=== PATIENT | female | born 1980 | race Caucasian/White ===

== ENCOUNTER → 2025-10-01 13:10 | Outpatient (REF) | payer BC, SELFPAY | LOC: HWWDC 13:10 | PROVIDERS: ATTENDING PHYSICIAN Nurse Practitioner Family | DX: Z12.31 Encounter for screening mammogram for malignant neoplasm of breast (principal) | CPT/HCPCS: 77063; 77067 ==

== ENCOUNTER → 2025-10-22 09:07 | Outpatient (REF) | payer BC, SELFPAY | LOC: WDC 09:07 | PROVIDERS: ATTENDING PHYSICIAN Nurse Practitioner Family | DX: R92.8 Other abnormal and inconclusive findings on diagnostic imaging of breast (principal) | CPT/HCPCS: 76642 ==